=== PATIENT | male | born 1990 | race African-American/Black ===

== ENCOUNTER 2016-07-30 11:04 | Emergency (ER) | payer BC ==
[~2016-07-30 11:04] MED LIST: ERYT.5%O OU
[2016-07-30 11:10] VITALS: BP 128/73; PULSE 66; RESP 18; TEMP 97.7; O2SAT 100
[2016-07-30] MEDS ORDERED: MYLASUS6 PO (11:14)
--- NOTE | 2016-07-30 11:21 | PD ---
HPI Chief Complaint: Chest Pain Time Seen by Provider: 11:10 Travel History International Travel<30 days: No Contact w/Intl Traveler<30days: No Traveled to known affect area: No History of Present Illness HPI 26-year-old male complains of chest pain. Patient states that he has intermittent right-sided chest pain since yesterday. Patient states the pain is sharp pain localized to the right chest. Patient denies any pain radiation. Patient states that the pains only comes on when he take a deep breath. Patient states that he has no chest pain and he held his breath. Patient denies any coughing congestion fever chills. Patient denies any history of CAD. Patient denies history hypertension, diabetes, dyslipidemia. Patient is a nonsmoker. Patient denies history of alcohol or illicit drug abuse. PFSH Past Medical History Medical History: Denies Significant Hx Diminished Hearing: No Influenza Vaccination: No ?: Not Past Surgical History Surgical History: No Previous Surgery Social History Alcohol Use: Yes (occ) Tobacco Use: No Substance Use: No Allergies-Medications (Allergen,Severity, Reaction): Coded Allergies: No Known Allergies (Unverified , 07/30/16) Reported Meds & Prescriptions Reported Meds & Active Scripts Active Reported Mylanta Double-Strength Liq (Nmnitwzz-Chggcuwxc-Beudvqenvqg Liq) 400-400-40 Mg/ 5 Ml Susp 10 Ml PO ONCE Take between meals or as directed. Shake well. Maximum 60 ml/24 hrs. Review of Systems General / Constitutional: No: Fever Eyes: No: Visual changes HENT: No: Headaches Cardiovascular: Positive: Chest Pain or Discomfort Respiratory: No: Shortness of Breath Gastrointestinal: No: Abdominal Pain Genitourinary: No: Dysuria Musculoskeletal: No: Pain Skin: No Rash Neurologic: No: Weakness Psychiatric: No: Depression Endocrine: No: Polydipsia Hematologic/Lymphatic: No: Easy Bruising Physical Exam Narrative GENERAL: Well-nourished, well-developed patient. SKIN: Focused skin assessment warm/dry. HEAD: Normocephalic. EYES: No scleral icterus. No injection or drainage. NECK: Supple, trachea midline. No JVD or lymphadenopathy. CARDIOVASCULAR: Regular rate and rhythm without murmurs, gallops, or rubs. RESPIRATORY: Breath sounds equal bilaterally. No accessory muscle use. GASTROINTESTINAL: Abdomen soft, non-tender, nondistended. MUSCULOSKELETAL: No cyanosis, or edema. BACK: Nontender without obvious deformity. No CVA tenderness. Neurologic exam normal. Data Data Last Documented VS Vital Signs Date Time Temp Pulse Resp B/P Pulse Ox O2 Delivery O2 Flow Rate FiO2 07/30/16 11:14 66 07/30/16 11:10 97.7 18 128/73 100 Orders Chest, Single Ap (07/30/16 11:16) Electrocardiogram (07/30/16 ) Ibuprofen (Motrin) (07/30/16 12:00) MDM Medical Decision Making Medical Screen Exam Complete: Yes Emergency Medical Condition: Yes Differential Diagnosis Differential diagnosis including musculoskeletal, pleurisy, PE, pneumothorax, angina, NC. Narrative Course 26-year-old male complains of right-sided chest pain with deep breathing. Motrin 600 mg by mouth given. Diagnosis Primary Impression: Pleurisy Patient Instructions: General Instructions Additional Instructions: Take medication as needed for pain. Follow-up with personal physician. Return if increasing chest pain shortness of breath. Med/Other Pt SpecificInfo: Prescription(s) given Scripts Meloxicam (Mobic)15 Mg Tab15 Mg PO DAILY #20 TAB Prov:Twin Young MD 07/30/16 Disposition: 01 DISCHARGE HOME Condition: Stable Twin Young MD Jul 30, 2016 11:21
[2016-07-30] MEDS ORDERED: MOBI15TA PO (11:57)
--- NOTE | 2016-07-30 11:58 | RADHPO ---
EXAM DATE/TIME: 07/30/2016 11:26 [facility] COMPARISON: No previous studies available for comparison. INDICATIONS : Chest pain. MEDICAL HISTORY : None. SURGICAL HISTORY : None. ENCOUNTER: Initial ACUITY: 2 days PAIN SCORE: 7/10 LOCATION: Left chest FINDINGS: A single view of the chest demonstrates the lungs to be symmetrically aerated without evidence of mas s, infiltrate or effusion. The cardiomediastinal contours are unremarkable. Osseous structures are intact. CONCLUSION: Normal examination. Rigo Quispe MD on July 30, 2016 at 11:56 Board Certified Radiologist. This report was verified electronically.
[2016-07-30] MEDS ORDERED: IBUPROFEN 600 MG TAB PO ONE (12:00)
--- NOTE | 2016-07-31 10:31 | EKG ---
Date Performed: 07/30/2016 Time Performed: 11:09:28 PTAGE: 26 years EKG: Sinus rhythm with 1st degree A-V block rSr'(V1) - probable normal variant Abnormal ECG NO PREVIOUS TRACING DOCTOR: Charlene Chapa Interpretating Date/Time 07/31/2016 10:26:13
== END 2016-07-30 12:08 | disposition home or self-care (01) ==
LOC: PHED 11:04
DX: R09.1 Pleurisy (principal)
CPT/HCPCS: 71010; 93005

== ENCOUNTER 2017-07-31 13:11 | Emergency (ER) | payer BC ==
[~2017-07-31] VITALS: Ht 170.2 cm; Wt 66.0 kg
[~2017-07-31 13:11] MED LIST changes: -ERYT.5%O OU; +MOBI15TA PO; +MYLASUS6 PO
[2017-07-31 13:16] VITALS: BP 108/74; PULSE 68; RESP 16; TEMP 97.7; O2SAT 97
[2017-07-31] MEDS ORDERED: CEPHALEXIN MONOHYDRATE 500 MG CAP PO ONE (13:30)
--- NOTE | 2017-07-31 13:37 | PD ---
HPI Chief Complaint: Foreign Body Time Seen by Provider: 13:21 Travel History International Travel<30 days: No Contact w/Intl Traveler<30days: No Traveled to known affect area: No History of Present Illness HPI 27-year-old male presents emergency department complaining of a possible wooden splinter to the left wrist/thumb area after picking up a wooden pallet yesterday. Says that he picked up his wooden palate and remember seeing a splinter go into his skin. Says he was able to remove a part of the wood but he believes there is still some retained foreign body in his hand. Patient denies numbness or tingling of the hand or fingers. Says the splinter is mild to moderately painful and constant. Denies fevers or chills. Last tetanus shot less than 5 years ago. Patient denies any chronic medical issues medication use. PFSH Past Medical History Medical History: Denies Significant Hx Diminished Hearing: No Immunizations Current: Yes Tetanus Vaccination: < 5 Years Influenza Vaccination: No Past Surgical History Surgical History: No Previous Surgery Social History Alcohol Use: Yes (occ) Tobacco Use: No Substance Use: No Allergies-Medications (Allergen,Severity, Reaction): Coded Allergies: No Known Allergies (Unverified Adverse Reaction, Unknown, 07/31/17) Reported Meds & Prescriptions Reported Meds & Active Scripts Active Bactrim DS (Sulfamethoxazole-Trimethoprim) 800-160 Mg Tab 1 Tab PO BID Keflex (Cephalexin) 500 Mg Capsule 500 Mg PO TID 7 Days Review of Systems Except as stated in HPI: all other systems reviewed are Neg Physical Exam Narrative GENERAL: Well-nourished, well-developed patient. SKIN: Focused skin assessment warm/dry. HEAD: Normocephalic. EYES: No scleral icterus. No injection or drainage. NECK: Supple, trachea midline. No JVD or lymphadenopathy. CARDIOVASCULAR: Regular rate and rhythm without murmurs, gallops, or rubs. RESPIRATORY: Breath sounds equal bilaterally. No accessory muscle use. MUSCULOSKELETAL: No cyanosis, or edema. Left hand-base of thumb, palmar/lateral aspect with what appears to be a superficial abrasion-there is a palpable mass just distal to the wound. No exudate expressed. BACK: Nontender without obvious deformity. No CVA tenderness. Data Data Last Documented VS Vital Signs Date Time Temp Pulse Resp B/P (MAP) Pulse Ox O2 Delivery O2 Flow Rate FiO2 07/31/17 13:16 97.7 68 16 108/74 (85) 97 Orders Orders Wrist, Limited (Ap&Lat) (07/31/17 ) Cephalexin (Keflex) (07/31/17 13:30) Acetamin-Hydrocod 325-5 Mg ([place] 5-325 (07/31/17 14:30) Ed Discharge Order (07/31/17 14:28) [facility] Medical Decision Making Medical Screen Exam Complete: Yes Emergency Medical Condition: Yes Differential Diagnosis Left hand retained foreign body, abrasion, avulsion, abscess Narrative Course 27-year-old male presents emergency department for evaluation of pain to his left hand. Vital signs stable. X-rays of wrist- no obvious foreign body seen on x-ray. Physical exam findings are concerning for retained foreign body as there appears to be blanching of a portion of the skin when pressing on the distal aspect. A 3cm wooden splinter was pulled from patient's wrist after local anesthesia and minimal cutdown performed. The site was thoroughly irrigated with saline. Cleansed twice with iodine. A small wick was placed to encourage drainage from the area as this was a rather deep puncture wound. Wound care advised. Keflex 500 mg, hydrocodone for pain administered in the emergency department today. Pt to return in 2 days for wound check as he does not have a primary care physician. Patient will take Keflex and Bactrim as an outpatient. Advised follow-up with emergency department worsening or persistent symptoms. Procedures Procedure Narrative INCISION AND DRAINAGE OF ABSCESS: The area was prepped and was sterilely draped. A subcutaneous wheal of 2 % Xylocaine without epinephrine with a total number 2 mL was used to anesthetize the area properly. A number 11 scalpel was used to make a V shaped 7.5mm-cm incision across the area of the suspected foreign body. The site was thoroughly irrigated of any debris until clear fluid and blood was expressed. Half inch iodoform packing was placed in the wound to allow continued drainage as this was a significant puncture wound. Sterile dressing applied. Patient advised to have packing removed in two days- return to the ED in 2 days for wound check. Diagnosis Primary Impression: Foreign body (FB) in soft tissue Referrals: [facility] Departure Forms: Tests/Procedures, Work Release Enter return to work date: Aug 03, 2017 Additional Instructions: Take all medications as prescribed. Return for wound check in 2 days. If your wound becomes more red, swollen, painful or develops pus return to emergency department immediately. Scripts Sulfamethoxazole-Trimethoprim (Bactrim DS) 800-160 Mg Tab 1 TAB PO BID for Infection, #14 TAB 0 Refills Prov: Inderjit Gutierrez MD 07/31/17 Cephalexin (Keflex) 500 Mg Capsule 500 MG PO TID for Infection for 7 Days, CAP 0 Refills Prov: Inderjit Gutierrez MD 07/31/17 Disposition: 01 DISCHARGE HOME Condition: Stable Madina Farias Jul 31, 2017 13:37
--- NOTE | 2017-07-31 13:55 | RADRPT ---
EXAM DATE/TIME: 07/31/2017 13:27 [facility] COMPARISON: CHEST SINGLE AP, July 30, 2016, 11:26. INDICATIONS : Foreign body. MEDICAL HISTORY : None. SURGICAL HISTORY : None. ENCOUNTER: Initial ACUITY: 2 days PAIN SCORE: 5/10 LOCATION: Left anterior base of thumb FINDINGS: Two view examination of the left wrist demonstrates no soft tissue swelling, dislocation, or fracture . The joint spaces are maintained. Bony mineralization is normal. CONCLUSION: 1. No radiodense foreign body identified. Rigo Quispe MD on July 31, 2017 at 13:51 Board Certified Radiologist. This report was verified electronically.
[2017-07-31] MEDS ORDERED: BACT800T5 PO (14:22)
[2017-07-31] MEDS ORDERED: CEPH-460 PO (14:22)
[2017-07-31] MEDS ORDERED: ACETAMINOPHEN/HYDROcodone 325 MG/5 MG TAB PO ONE (14:30)
== END 2017-07-31 15:00 | disposition home or self-care (01) ==
LOC: PHEFT 13:11
DX: S60.852A Superficial foreign body of left wrist, initial encounter (principal)
CPT/HCPCS: 10061; 73100